=== PATIENT | female | born 1990 | race Caucasian/White ===

== ENCOUNTER 2019-03-28 13:44 | Outpatient (CLI) | payer OTHER ==
--- NOTE | 2019-03-29 11:03 | Ultrasound Report ---
Reason: LT BREAST LUMP Procedure Date: 03/28/2019 Accession Number: [id number] / [id number] Procedure: US - Breast Unilateral Limited CPT Code: FULL RESULT: EXAM: Breast Unilateral Limited DATE: 03/28/2019 2:30 PM CLINICAL HISTORY: LT BREAST LUMP, decreasing in size and tenderness over the last 2 months. COMPARISON: None. TECHNIQUE: Targeted ultrasound was performed of the left breast in the area of clinical concern at 7 o'clock and 3 distance from the nipple. Color Doppler was employed as appropriate. FINDINGS: There is a 5 x 5 x 3 mm cyst with internal septation corresponding to the palpable lump. No suspicious solid mass is seen. IMPRESSION: Benign findings RECOMMENDATION: Clinical follow-up. BIRADS CATEGORY 2: Benign findings RADIA
== END 2019-03-28 13:45 | disposition home or self-care (01) ==
LOC: DI 13:44
PROVIDERS: ATTEND Nurse Practitioner Family
DX: N60.02 Solitary cyst of left breast (principal)
CPT/HCPCS: 76642

== ENCOUNTER 2019-06-21 12:49 | Outpatient (CLI) | payer OTHER ==
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
== END 2019-06-21 12:50 | disposition home or self-care (01) ==
LOC: DI.S 12:49
PROVIDERS: ATTEND Chiropractor
DX: M41.9 Scoliosis, unspecified (principal)
CPT/HCPCS: 72052; 72100

== ENCOUNTER 2023-02-10 11:43 | Outpatient (CLI) | payer BC ==
--- NOTE | 2023-02-10 14:39 | Ultrasound Report ---
PROCEDURE: Head or Neck Soft Tissue INDICATIONS: THYROID NODULE TECHNIQUE: Real-time scanning was performed of the thyroid gland, with image documentation. COMPARISON: None FINDINGS: Right: Thyroid lobe measures 5.9 x 1.5 x 1.5 cm, and is homogeneous in echotexture. Left: Thyroid lobe measures 6.4 x 1.7 x 1.8 cm, and is homogenous in echotexture. Isthmus: 2 mm thick. Nodule number: One Location: Left inferior Size: 2.6 x 1.7 x 1.6 cm. Composition: Cystic / almost completely cystic (0 points). Echogenicity: Anechoic (0 points). Shape: wider than tall. Margins: Smooth (0 points). Echogenic foci: Comet-tail artifacts (0 points). Total points: 0 ACR TI-RADS category: Benign (0 points). IMPRESSION: Cystic lesion within the left thyroid gland is likely benign. No follow-up is necessary. ACR TI-RADS definitions and recommendations: TI-RADS 1 (benign): 0 points. FNA not needed. TI-RADS 2 (not suspicious): 2 points. FNA not needed. TI-RADS 3 (mildly suspicious): 3 points. "FNA if 2.5 cm or larger, follow up if 1.5 cm or larger (at 1, 3, and 5 years). TI-RADS 4 (moderately suspicious): 4-6 points. "FNA if 1.5 cm or larger, follow up if 1 cm or larger (at 1, 2, 3, and 5 years). TI-RADS 5 (highly suspicious): 7 points or more. "FNA if 1 cm or larger, follow up if 0.5 cm or larger (every year for 5 years). Reviewed by: Pedro Luis Ponce MD on 02/10/2023 2:38 PM PDT Approved by: Pedro Luis Ponce MD on 02/10/2023 2:38 PM PDT Station ID: [id number]
== END 2023-02-10 11:44 | disposition home or self-care (01) ==
LOC: DI 11:43
PROVIDERS: ATTEND Registered Nurse
DX: E04.1 Nontoxic single thyroid nodule (principal)